=== PATIENT | female | born 1970 | race Caucasian/White ===

== ENCOUNTER 2019-12-07 13:27 | Outpatient (CLI) | payer OTHER, SELFPAY ==
--- NOTE | 2019-12-07 13:43 | XR_ITS ---
WS: [id number] Chest 2 views, 12/07/2019 Clinical Data: CHRONIC COUGH/ PERSONAL HISTORY OF NICOTINE DEPENDENCE Comparison: PA and lateral chest, 03/29/2012. Findings: No nodules, masses or effusions are seen. The heart is normal. The pulmonary vascularity is not increased. No pneumonia or pneumothorax is seen. XR/XR chest 2V* [id number] Impression: Negative chest.
== END 2019-12-07 13:28 | disposition home or self-care (01) ==
LOC: RADWPI 13:34
PROVIDERS: Family Provider Nurse Practitioner Family; PCP Nurse Practitioner Family; Visit Provider Nurse Practitioner Family
DX: Z87.891 Personal history of nicotine dependence (principal); R05 Cough
CPT/HCPCS: 71046

== ENCOUNTER 2020-01-24 09:31 | Outpatient (CLI) | payer OTHER, SELFPAY ==
--- NOTE | 2020-01-24 09:35 | MM_ITS ---
WS: [id number] BILATERAL DIGITAL SCREENING MAMMOGRAPHY WITH CAD CLINICAL INFORMATION: SCREENING HISTORY: Screening mammogram. No current complaints. COMPARISON: TECHNIQUE: Bilateral CC and MLO views. FINDINGS: The breasts are composed of heterogeneous fibroglandular density tissue, which can limit the detectio n of small underlying mass lesions. No suspicious mass, asymmetry, calcifications, or architectural d istortion. No evidence of malignancy. MM/[place] [id number] IMPRESSION: BI-RADS: 1-Negative FOLLOW UP: 1 Year Follow-up Recommend return to annual screening mammography.
== END 2020-01-24 09:32 | disposition home or self-care (01) ==
LOC: RADSHAW 09:33
PROVIDERS: PCP Nurse Practitioner Family; Visit Provider Nurse Practitioner Family
DX: Z12.31 Encounter for screening mammogram for malignant neoplasm of breast (principal)
CPT/HCPCS: 77067

== ENCOUNTER → 2021-05-21 08:06 | Outpatient (BNVA) | payer OTHER, SELFPAY | PROVIDERS: Visit Provider Obstetrics & Gynecology | DX: Z00.00 Encounter for general adult medical examination without abnormal findings (principal); Z12.4 Encounter for screening for malignant neoplasm of cervix | CPT/HCPCS: 80061; 82652; 83036; 87624 ==

== ENCOUNTER → 2021-06-17 09:50 | Outpatient (BNVA) | payer OTHER, SELFPAY | PROVIDERS: Referring Provider Nurse Practitioner Family; Visit Provider Orthopaedic Surgery | DX: M25.532 Pain in left wrist (principal) | CPT/HCPCS: 73110 ==

== ENCOUNTER 2021-06-18 12:07 | Outpatient (CLI) | payer OTHER, SELFPAY | END 2021-06-18 12:08 | disposition home or self-care (01) | LOC: SPT 12:08 | PROVIDERS: Visit Provider Orthopaedic Surgery | DX: Z46.89 Encounter for fitting and adjustment of other specified devices (principal); M65.4 Radial styloid tenosynovitis [de Quervain] | CPT/HCPCS: 97760; L3809 ==

== ENCOUNTER 2021-08-07 14:21 | Outpatient (CLI) | payer OTHER, SELFPAY ==
--- NOTE | 2021-08-07 14:54 | MM_ITS ---
WS: [id number] BILATERAL 3D TOMOSYNTHESIS DIGITAL SCREENING MAMMOGRAPHY WITH CAD CLINICAL INFORMATION: Z12.39 - Encounter for other screening for malignant neop... HISTORY: Screening mammogram. LEFT breast pain COMPARISON: January 24, 2020 TECHNIQUE: Bilateral CC and MLO views. FINDINGS: Scattered fibroglandular densities bilaterally. A few incidental punctate calcifications. No suspicio us focal mass, asymmetry, calcifications, or architectural distortion. No evidence of malignancy. MM/[place] [id number] IMPRESSION: BI-RADS: 2-Benign FOLLOW UP: 1 Year Follow-up Recommend return to annual screening mammography.
== END 2021-08-07 14:22 | disposition home or self-care (01) ==
LOC: RADSHAW 14:25
PROVIDERS: Visit Provider Obstetrics & Gynecology
DX: Z12.31 Encounter for screening mammogram for malignant neoplasm of breast (principal)
CPT/HCPCS: 77063; 77067

== ENCOUNTER → 2021-11-18 11:34 | Outpatient (BNVA) | payer OTHER, SELFPAY | PROVIDERS: Visit Provider Family Medicine | DX: R53.83 Other fatigue (principal); F17.200 Nicotine dependence, unspecified, uncomplicated; M65.4 Radial styloid tenosynovitis [de Quervain]; N81.4 Uterovaginal prolapse, unspecified; E78.00 Pure hypercholesterolemia, unspecified | CPT/HCPCS: 80053; 80061; 82607; 82652; 83880; 84439; 84443; 84481; 85025; 85651; 86140 ==

== ENCOUNTER 2022-02-11 10:51 | Outpatient (CLI) | payer OTHER, SELFPAY ==
--- NOTE | 2022-02-11 10:45 | CT_ITS ---
WS: [id number] LDCT LUNG CANCER SCREENING TECHNIQUE: Noncontrast CT of the chest with coronal and sagittal reformatted images. CLINICAL INFORMATION: smoker COMPARISON: None. DLP: 68.50 mGy.cm DIvol: Mean CTDIvol: 1.60 (mGy) All CT scans at [facility] use at least one of these dose optimization techniques: automat ed exposure control; mA and/or kV adjustment per patient size (includes targeted exams where dose is matched to clinical indication); or iterative reconstruction. FINDINGS: Small fibrotic nodule along the LEFT major fissure measuring 6 mm. Otherwise a few tiny scattered gómez ronodules measuring 2 to 3 mm. Normal caliber thoracic aorta. No mediastinal or hilar lymphadenopathy. No axillary lymphadenopathy. Adrenal glands are normal. Normal GE junction. CT/CT lung screening [id number] IMPRESSION: LUNG-RADS: 2-Benign Appearance or Behavior FOLLOW UP: 12 Month: Continue annual screening with LDCT
== END 2022-02-11 10:52 | disposition home or self-care (01) ==
LOC: RAD 10:54
PROVIDERS: PCP Family Medicine; Visit Provider Family Medicine
DX: Z12.2 Encounter for screening for malignant neoplasm of respiratory organs (principal); F17.200 Nicotine dependence, unspecified, uncomplicated; R53.83 Other fatigue
CPT/HCPCS: 71271

== ENCOUNTER → 2022-12-23 11:43 | Outpatient (BNVA) | payer OTHER, SELFPAY | PROVIDERS: PCP Family Medicine; Visit Provider Family Medicine | DX: E03.9 Hypothyroidism, unspecified (principal); E78.5 Hyperlipidemia, unspecified; E55.9 Vitamin D deficiency, unspecified; R25.2 Cramp and spasm | CPT/HCPCS: 80053; 80061; 82306; 83735; 84443 ==

== ENCOUNTER 2023-01-13 10:26 | Outpatient (CLI) | payer OTHER, SELFPAY ==
--- NOTE | 2023-01-13 10:39 | MM_ITS ---
WS: [id number] BILATERAL SCREENING DIGITAL TOMOSYNTHESIS MAMMOGRAM WITH CAD HISTORY: SCREENING COMPARISON: 08/07/2021 and 01/24/2020 Bilateral CC and MLO views with tomosynthesis and synthetic mammography submitted. Computer aided det ection analyzed. Breast composition: There are scattered areas of fibroglandular density. No suspicious masses, microc alcifications or architectural distortion. Benign calcifications in each breast. IMPRESSION: MM/[place] [id number] BI-RADS: 2-Benign FOLLOW UP: 1 Year Follow-up
== END 2023-01-13 10:27 | disposition home or self-care (01) ==
PROVIDERS: PCP Family Medicine; Visit Provider Family Medicine
DX: Z12.31 Encounter for screening mammogram for malignant neoplasm of breast (principal)
CPT/HCPCS: 77063; 77067

== ENCOUNTER → 2023-08-04 12:43 | Outpatient (BNVA) | payer OTHER, SELFPAY | PROVIDERS: PCP Family Medicine; Visit Provider Family Medicine | DX: E78.5 Hyperlipidemia, unspecified (principal); E03.9 Hypothyroidism, unspecified; E55.9 Vitamin D deficiency, unspecified; R53.83 Other fatigue; R25.2 Cramp and spasm; I10 Essential (primary) hypertension; E11.9 Type 2 diabetes mellitus without complications | CPT/HCPCS: 80053; 80061; 82306; 82607; 83036; 83690; 83880; 84439; 84443; 84482; 84550; 85025; 85651; 86140 ==

== ENCOUNTER → 2023-12-22 11:51 | Outpatient (BNVA) | payer OTHER, SELFPAY | PROVIDERS: PCP Family Medicine; Visit Provider Family Medicine | DX: M79.605 Pain in left leg (principal); I10 Essential (primary) hypertension | CPT/HCPCS: 84550; 85025; 85379; 86140 ==

== ENCOUNTER 2024-01-18 12:03 | Outpatient (CLI) | payer OTHER, SELFPAY ==
--- NOTE | 2024-01-18 12:08 | XRR_ITS ---
PROCEDURE INFORMATION: Exam: XR Left Knee Exam date and time: 01/18/2024 12:18 PM Age: 53 years old Clinical indication: Swelling or effusion of joint; Patient HX: Left lateral/anterior knee pain and swelling since September, no specific injury; Additional info: Knee pain/ swelling TECHNIQUE: Imaging protocol: Radiologic exam of the left knee. Views: 3 views. COMPARISON: No relevant prior studies available. FINDINGS: Bones/joints: Mild medial compartment DJD. Small left knee joint effusion. No acute fracture or dislocation Soft tissues: Normal. XR/XR knee LT 3V* [id number] IMPRESSION: No acute findings. See above
== END 2024-01-18 12:04 | disposition home or self-care (01) ==
LOC: RAD 12:05
PROVIDERS: PCP Family Medicine; Visit Provider Family Medicine
DX: M25.562 Pain in left knee (principal); M25.462 Effusion, left knee
CPT/HCPCS: 73562

== ENCOUNTER 2024-02-01 09:55 | Outpatient (CLI) | payer OTHER, SELFPAY ==
--- NOTE | 2024-02-01 10:15 | MR_ITS ---
WS: [id number] MRI LEFT KNEE HISTORY: left knee pain COMPARISON: Radiograph 01/18/2024 Anterior cruciate ligament: Small amount of increased signal in the distal ACL but no full-thickness tear. Posterior cruciate ligament: Intact. Medial collateral ligament: Fluid surrounding the MCL. MCL is being displaced from the joint line. Posterior lateral corner structures: Intact. Medial menisci: Abnormal signal diffusely throughout the posterior horn extends to the free edge. Rad ial tear of the posterior horn with additional intrasubstance degeneration. Anterior horn is partiall y subluxed from the joint space. Lateral meniscus: Intact. Normal signal, size and shape. Extensor mechanism: Distal quadriceps tendon and patellar tendons are intact. Fluid and soft tissue: Large suprapatellar joint effusion. There is a small amount of fluid extending into the infrapatellar fat pad. No Silva's cyst. Osseous and articular structures: Patellofemoral compartment: Lateral subluxation of the patella. Thin displaced medial patellar retina culum appears partially torn. This is resulting in lateral subluxation of the patella. No fractures o r marrow edema. Medial compartment: Moderate narrowing the medial compartment. Small marginal osteophytes and a small amount of marrow edema along the tibial plateau. Diffuse loss of cartilage. Lateral compartment: Mild narrowing with mild thinning and fissuring of the cartilage. MR/MR knee LT wo con* [id number] IMPRESSION: 1. Large joint effusion. 2. Fluid and abnormal signal extending into the infrapatellar fat pad consiste nt with infrapatellar fat pad impingement. 3. Marked thinning of the medial patellar retinaculum with partial tear. Resul ting in slight lateral subluxation of the patella. 4. Diffusely abnormal signal throughout the posterior horn medial meniscus. In trasubstance degeneration. Radial tear in the free edge of the posterior medial meniscus. 5. MCL sprain. 6. Moderate narrowing the medial compartment with small marginal osteophytes a nd a small amount of marrow edema along the tibial plateau. Diffuse loss of car tilage.
== END 2024-02-01 09:56 | disposition home or self-care (01) ==
LOC: RAD 09:56
PROVIDERS: PCP Family Medicine; Visit Provider Family Medicine
DX: S83.412A Sprain of medial collateral ligament of left knee, initial encounter (principal); X58.XXXA Exposure to other specified factors, initial encounter; M17.12 Unilateral primary osteoarthritis, left knee
CPT/HCPCS: 73721

== ENCOUNTER → 2024-02-25 09:38 | Outpatient (BNVA) | payer OTHER, SELFPAY | PROVIDERS: PCP Family Medicine; Visit Provider Physician Assistant | DX: S83.207A Unspecified tear of unspecified meniscus, current injury, left knee, initial encounter (principal); M25.562 Pain in left knee; X58.XXXA Exposure to other specified factors, initial encounter; M17.12 Unilateral primary osteoarthritis, left knee | CPT/HCPCS: 73560; 73565 ==

== ENCOUNTER → 2025-04-05 14:16 | Outpatient (BNVA) | payer OTHER, SELFPAY | PROVIDERS: PCP Family Medicine; Visit Provider Family Medicine | DX: E55.9 Vitamin D deficiency, unspecified (principal); E78.5 Hyperlipidemia, unspecified; E03.9 Hypothyroidism, unspecified; F17.200 Nicotine dependence, unspecified, uncomplicated | CPT/HCPCS: 80053; 80061; 82306; 83036; 83690; 84443; 84550; 85025; 85651; 86140 ==

== ENCOUNTER 2025-04-12 14:46 | Outpatient (CLI) | payer OTHER, SELFPAY ==
--- NOTE | 2025-04-12 14:40 | MM_ITS ---
WS: [id number] SCREENING DIGITAL BREAST TOMOSYNTHESIS MAMMOGRAM WITH CAD HISTORY: screening COMPARISON: 01/13/2023, 08/07/2021 Bilateral CC and MLO with tomosynthesis and synthetic mammography submitted. Computer aided detection analyzed. Breast composition: There are scattered areas of fibroglandular density. Lobulated mass retroareolar RIGHT breast measures 4 x 4 x 5 mm. Mass is of slightly increased density. No distortion. There are additional benign calcifications scattered throughout each breast. MM/MM scr tomosynthesis [id number] IMPRESSION: BI-RADS: 0 - Incomplete: Need additional imaging evaluation. FOLLOW UP: Need Additional Imaging RIGHT breast: Spot compression views (CC and MLO). True ML. Ultrasound to follo w if abnormality persists.
--- NOTE | 2025-04-12 15:00 | XR_ITS ---
WS: [id number] DEXA (DUAL ENERGY X-RAY ABSORPTIOMETRY) Bone mineral density was performed using a [employer] machine. HISTORY: screening COMPARISON: None available. Lumbar spine BMD (L1-L4): 1.042 g/cm2 T score: -1.1 Z score: -1.1 Total hip BMD: Left: 0.816 g/cm2. T score: -1.5 Z score: -1.4 Right: 0.889 g/cm2. T score: -0.9 Z score: -0.8 10 year probability of a major osteoporotic fracture is 6.7%. XR/XR DEXA axial skeleton* [id number] IMPRESSION: OSTEOPENIA based upon the WHO classification for females.
== END 2025-04-12 14:47 | disposition home or self-care (01) ==
LOC: RAD 14:49
PROVIDERS: PCP Family Medicine; Visit Provider Family Medicine
DX: Z12.31 Encounter for screening mammogram for malignant neoplasm of breast (principal); Z13.820 Encounter for screening for osteoporosis; Z00.00 Encounter for general adult medical examination without abnormal findings; R92.323 Mammographic fibroglandular density, bilateral breasts; R92.1 Mammographic calcification found on diagnostic imaging of breast; M85.89 Other specified disorders of bone density and structure, multiple sites
CPT/HCPCS: 77063; 77067; 77080